=== PATIENT | female | born 1935 | race Caucasian/White ===

== ENCOUNTER → 2018-01-06 | Outpatient (CLI) | payer OTHER ==
[~2018-01-06] MED LIST: ALEN70TA5 PO; ASPIRIN PO; ATOR40TA78 PO; FLUC150T2 PO; ISOSORB PO; MELO15TA24 PO; METO50TA82 PO; PRILOSEC PO; PROBIOTIC PO; SOLI5TAB2 PO; TRANDOLAPRIL PO
== END | disposition home or self-care (01) ==
LOC: WOUND 07:52
PROVIDERS: ATTEND Internal Medicine
DX: L89.42 Pressure ulcer of contiguous site of back, buttock and hip, stage 2 (principal); L98.412 Non-pressure chronic ulcer of buttock with fat layer exposed; I10 Essential (primary) hypertension; I25.10 Atherosclerotic heart disease of native coronary artery without angina pectoris; K21.9 Gastro-esophageal reflux disease without esophagitis; J44.9 Chronic obstructive pulmonary disease, unspecified; M19.90 Unspecified osteoarthritis, unspecified site; E78.5 Hyperlipidemia, unspecified; Z85.51 Personal history of malignant neoplasm of bladder; Z87.891 Personal history of nicotine dependence; Z79.82 Long term (current) use of aspirin
CPT/HCPCS: 97597; G0463; WOU0463

== ENCOUNTER → 2018-01-13 | Outpatient (CLI) | payer OTHER | END | disposition home or self-care (01) | LOC: WOUND 08:24 | PROVIDERS: ATTEND Internal Medicine | DX: L89.42 Pressure ulcer of contiguous site of back, buttock and hip, stage 2 (principal); L98.412 Non-pressure chronic ulcer of buttock with fat layer exposed; I25.10 Atherosclerotic heart disease of native coronary artery without angina pectoris; J44.9 Chronic obstructive pulmonary disease, unspecified; I10 Essential (primary) hypertension; K21.9 Gastro-esophageal reflux disease without esophagitis; E78.5 Hyperlipidemia, unspecified; M19.90 Unspecified osteoarthritis, unspecified site; Z85.51 Personal history of malignant neoplasm of bladder; Z87.891 Personal history of nicotine dependence | CPT/HCPCS: 97597 ==

== ENCOUNTER → 2018-01-20 | Outpatient (CLI) | payer OTHER | END | disposition home or self-care (01) | LOC: WOUND 08:28 | PROVIDERS: ATTEND Internal Medicine | DX: L89.42 Pressure ulcer of contiguous site of back, buttock and hip, stage 2 (principal); L98.412 Non-pressure chronic ulcer of buttock with fat layer exposed; I25.10 Atherosclerotic heart disease of native coronary artery without angina pectoris; J44.9 Chronic obstructive pulmonary disease, unspecified; I10 Essential (primary) hypertension; K21.9 Gastro-esophageal reflux disease without esophagitis; E78.5 Hyperlipidemia, unspecified; M19.90 Unspecified osteoarthritis, unspecified site; Z87.891 Personal history of nicotine dependence; Z85.51 Personal history of malignant neoplasm of bladder; Z79.82 Long term (current) use of aspirin | CPT/HCPCS: 97597; 97598 ==

== ENCOUNTER → 2018-01-27 | Outpatient (CLI) | payer OTHER | END | disposition home or self-care (01) | LOC: WOUND 08:15 | PROVIDERS: ATTEND Internal Medicine | DX: L98.412 Non-pressure chronic ulcer of buttock with fat layer exposed (principal); K21.9 Gastro-esophageal reflux disease without esophagitis; I25.10 Atherosclerotic heart disease of native coronary artery without angina pectoris; M19.90 Unspecified osteoarthritis, unspecified site; J44.9 Chronic obstructive pulmonary disease, unspecified; I10 Essential (primary) hypertension; E78.5 Hyperlipidemia, unspecified; Z85.51 Personal history of malignant neoplasm of bladder; Z87.891 Personal history of nicotine dependence; Z79.82 Long term (current) use of aspirin | CPT/HCPCS: 99214 ==

== ENCOUNTER → 2018-02-03 | Outpatient (CLI) | payer OTHER | END | disposition home or self-care (01) | LOC: WOUND 08:32 | PROVIDERS: ATTEND Internal Medicine | DX: L98.412 Non-pressure chronic ulcer of buttock with fat layer exposed (principal); K21.9 Gastro-esophageal reflux disease without esophagitis; I25.10 Atherosclerotic heart disease of native coronary artery without angina pectoris; M19.90 Unspecified osteoarthritis, unspecified site; J44.9 Chronic obstructive pulmonary disease, unspecified; I10 Essential (primary) hypertension; E78.5 Hyperlipidemia, unspecified; Z85.51 Personal history of malignant neoplasm of bladder; Z87.891 Personal history of nicotine dependence; Z79.82 Long term (current) use of aspirin | CPT/HCPCS: 97597; 97598 ==

== ENCOUNTER → 2018-02-17 | Outpatient (CLI) | payer OTHER | END | disposition home or self-care (01) | LOC: WOUND 08:35 | PROVIDERS: ATTEND Internal Medicine | DX: L98.412 Non-pressure chronic ulcer of buttock with fat layer exposed (principal); K21.9 Gastro-esophageal reflux disease without esophagitis; I25.10 Atherosclerotic heart disease of native coronary artery without angina pectoris; M19.90 Unspecified osteoarthritis, unspecified site; J44.9 Chronic obstructive pulmonary disease, unspecified; I10 Essential (primary) hypertension; E78.5 Hyperlipidemia, unspecified; Z85.51 Personal history of malignant neoplasm of bladder; Z87.891 Personal history of nicotine dependence; Z79.82 Long term (current) use of aspirin | CPT/HCPCS: 97597; 97598 ==

== ENCOUNTER → 2018-02-24 | Outpatient (CLI) | payer OTHER | END | disposition home or self-care (01) | LOC: WOUND 08:48 | PROVIDERS: ATTEND Internal Medicine | DX: L98.412 Non-pressure chronic ulcer of buttock with fat layer exposed (principal); K21.9 Gastro-esophageal reflux disease without esophagitis; I25.10 Atherosclerotic heart disease of native coronary artery without angina pectoris; M19.90 Unspecified osteoarthritis, unspecified site; J44.9 Chronic obstructive pulmonary disease, unspecified; I10 Essential (primary) hypertension; E78.5 Hyperlipidemia, unspecified; L90.0 Lichen sclerosus et atrophicus; Z85.51 Personal history of malignant neoplasm of bladder; Z87.891 Personal history of nicotine dependence; Z79.82 Long term (current) use of aspirin | CPT/HCPCS: 97597; 97598 ==

== ENCOUNTER → 2018-03-03 | Outpatient (CLI) | payer OTHER | END | disposition home or self-care (01) | LOC: WOUND 08:46 | PROVIDERS: ATTEND Internal Medicine | DX: L98.412 Non-pressure chronic ulcer of buttock with fat layer exposed (principal); K21.9 Gastro-esophageal reflux disease without esophagitis; E78.4 Other hyperlipidemia; I10 Essential (primary) hypertension; I25.10 Atherosclerotic heart disease of native coronary artery without angina pectoris; J44.9 Chronic obstructive pulmonary disease, unspecified; M19.90 Unspecified osteoarthritis, unspecified site; L90.0 Lichen sclerosus et atrophicus; Z79.82 Long term (current) use of aspirin; Z85.51 Personal history of malignant neoplasm of bladder; Z87.891 Personal history of nicotine dependence | CPT/HCPCS: 97597; 97598 ==

== ENCOUNTER → 2018-03-19 | Outpatient (CLI) | payer OTHER | END | disposition home or self-care (01) | LOC: WOUND 07:46 | PROVIDERS: ATTEND Internal Medicine | DX: L98.412 Non-pressure chronic ulcer of buttock with fat layer exposed (principal); K21.9 Gastro-esophageal reflux disease without esophagitis; I25.10 Atherosclerotic heart disease of native coronary artery without angina pectoris; M19.90 Unspecified osteoarthritis, unspecified site; J44.9 Chronic obstructive pulmonary disease, unspecified; I10 Essential (primary) hypertension; E78.4 Other hyperlipidemia; Z85.51 Personal history of malignant neoplasm of bladder; Z87.891 Personal history of nicotine dependence; Z79.82 Long term (current) use of aspirin | CPT/HCPCS: 97597; 97598 ==

== ENCOUNTER → 2018-04-02 | Outpatient (CLI) | payer OTHER | END | disposition home or self-care (01) | LOC: WOUND 09:53 | PROVIDERS: ATTEND Internal Medicine | DX: L98.412 Non-pressure chronic ulcer of buttock with fat layer exposed (principal); L90.0 Lichen sclerosus et atrophicus; I10 Essential (primary) hypertension; E78.5 Hyperlipidemia, unspecified; K21.9 Gastro-esophageal reflux disease without esophagitis; J44.9 Chronic obstructive pulmonary disease, unspecified; M19.90 Unspecified osteoarthritis, unspecified site; I25.10 Atherosclerotic heart disease of native coronary artery without angina pectoris; Z85.51 Personal history of malignant neoplasm of bladder; Z87.891 Personal history of nicotine dependence | CPT/HCPCS: 99214 ==

== ENCOUNTER → 2018-04-14 | Outpatient (CLI) | payer OTHER | END | disposition home or self-care (01) | LOC: WOUND 09:26 | PROVIDERS: ATTEND Internal Medicine | DX: L98.412 Non-pressure chronic ulcer of buttock with fat layer exposed (principal); I10 Essential (primary) hypertension; J44.9 Chronic obstructive pulmonary disease, unspecified; K21.9 Gastro-esophageal reflux disease without esophagitis; E78.49 Other hyperlipidemia; M19.90 Unspecified osteoarthritis, unspecified site; I25.10 Atherosclerotic heart disease of native coronary artery without angina pectoris; Z85.51 Personal history of malignant neoplasm of bladder; Z87.891 Personal history of nicotine dependence | CPT/HCPCS: 97597 ==

== ENCOUNTER → 2018-04-28 | Outpatient (CLI) | payer OTHER | END | disposition home or self-care (01) | LOC: WOUND 09:18 | PROVIDERS: ATTEND Internal Medicine | DX: L98.412 Non-pressure chronic ulcer of buttock with fat layer exposed (principal); I10 Essential (primary) hypertension; J44.9 Chronic obstructive pulmonary disease, unspecified; K21.9 Gastro-esophageal reflux disease without esophagitis; E78.49 Other hyperlipidemia; M19.90 Unspecified osteoarthritis, unspecified site; I25.10 Atherosclerotic heart disease of native coronary artery without angina pectoris; L90.0 Lichen sclerosus et atrophicus; Z85.51 Personal history of malignant neoplasm of bladder; Z87.891 Personal history of nicotine dependence; Z79.82 Long term (current) use of aspirin | CPT/HCPCS: 97597 ==

== ENCOUNTER 2018-05-19 17:42 | Inpatient (IN) | payer OTHER ==
[~2018-05-19] VITALS: Ht 167.6 cm; Wt 89.2 kg
[2018-05-19] MEDS ORDERED: HYDR25TA11 PO (18:22)
[2018-05-19] MEDS ORDERED: TOLT2CAP22 PO (18:22)
[2018-05-19] MEDS ORDERED: Oxygen (18:22)
[2018-05-19] MEDS ORDERED: Cetirizine PO (18:22)
[2018-05-19] MEDS ORDERED: PANT40TA5 PO (18:22)
[2018-05-19] MEDS ORDERED: LISI5TAB7 PO (18:22)
[2018-05-19] MEDS ORDERED: FERR325T18 PO (18:22)
[2018-05-19] MEDS ORDERED: MIRA50TA PO (18:36)
[2018-05-19 19:04] LABS: BASOPHILS # (AUTO) 0.04 x10^3/uL (0-0.1); BASOPHILS % (AUTO) 0 % (0-1); EOSINOPHILS # (AUTO) 0.15 x10^3/uL (0-0.4); EOSINOPHILS % (AUTO) 1 % (1-7); LYMPHOCYTES # (AUTO) 1.87 x10^3/uL (1-3.4); LYMPHOCYTES % (AUTO) 15 % (22-44); MD NO; MEAN CORPUSCULAR HGB CONC 33.5 g/dL (32.4-35.8); MEAN CORPUSCULAR VOLUME 89.6 fL (80-100); MEAN PLATELET VOLUME 9.1 fL (7.4-10.4); MONOCYTES # (AUTO) 0.72 x10^3/uL (0.2-0.8); MONOCYTES % (AUTO) 6 % (2-9); NEUTROPHILS # (AUTO) 9.39 x10^3/uL (1.8-6.8); NEUTROPHILS % (AUTO) 77 % (42-75); PLATELET COUNT 274 x10^3/uL (130-400); RED BLOOD COUNT 4.47 x10^6/uL (3.82-5.3); RED CELL DISTRIBUTION WIDTH 20.2 % (9.6-15.2)
[2018-05-19 19:26] LABS: ALANINE AMINOTRANSFERASE 13 U/L (12-78); ALBUMIN 3.4 g/dL (3.4-5.0); ANION GAP 12 mmol/L (5-15); CALCIUM 9.1 mg/dL (8.5-10.1); CHLORIDE 104 mmol/L (98-107)
[2018-05-19 19:30] LABS: ALKALINE PHOSPHATASE 102 U/L (45-117); BILIRUBIN,TOTAL 0.3 mg/dL (0.2-1.0); TOTAL PROTEIN 7.5 g/dL (6.4-8.2); TROPONIN I < 0.015 ng/mL (0.000-0.045)
[2018-05-19] MEDS ORDERED: SODIUM CHLORIDE 0.9% 1,000 ML IV SCH (22:40)
[2018-05-19 23:00] VITALS: BP 111/80
[2018-05-19] MEDS ORDERED: morphine SULFATE 10 MG/ML, 1ML IVPush PRN (23:00)
[2018-05-19] MEDS ORDERED: DOCUSATE 100 MG CAPSULE PO PRN (23:00)
[2018-05-19] MEDS ORDERED: ACETAMINOPHEN 325 MG TABLET PO PRN (23:00)
[2018-05-19] MEDS ORDERED: ENOXAPARIN 40 MG/0.4 ML SQ SCH (23:00)
[2018-05-19] MEDS ORDERED: ONDANSETRON 2MG/ML, 2ML IVPush PRN (23:00)
[2018-05-19] MEDS ORDERED: NITROGLYCERIN 0.4 MG BOTTLE (25 TABS) SL PRN (23:00)
[2018-05-19] MEDS ORDERED: NITROGLYCERIN 0.4 MG/SPRAY SL PRN (23:00)
[2018-05-19] MEDS ORDERED: HYDROcodone/APAP 5/325 TABLET PO PRN (23:00)
[2018-05-19] MEDS ORDERED: POLYETHYLENE GLYCOL 17 GM PACKET PO PRN (23:00)
[2018-05-19] MEDS: ALENDRONATE MC SCH (23:30)
[2018-05-19] MEDS: TRANDOLAPRIL MC SCH (23:30)
[2018-05-20] MEDS: FAMOTIDINE 20 MG TABLET PO SCH ×2 (00:04→08:08)
[2018-05-20 00:45] LABS: CULTURE INDICATED? YES; MICROSCOPIC INDICATED
[2018-05-20 01:28] VITALS: BP 103/69
[2018-05-20] MEDS: CEFTRIAXONE PMX 1GM/50ML 50 ML IV SCH (03:11)
[2018-05-20 05:42] LABS: ANION GAP 11 mmol/L (5-15); CALCIUM 8.4 mg/dL (8.5-10.1); CHLORIDE 106 mmol/L (98-107); TRIGLYCERIDES 217 mg/dL (50-200); VLDL CHOLESTEROL 43 mg/dL (0-25)
[2018-05-20 05:46] LABS: CREATININE 1.73 mg/dL (0.55-1.02); HDL CHOLESTEROL (DIRECT) 37 mg/dL (40-60); TROPONIN I < 0.015 ng/mL (0.000-0.045)
[2018-05-20 05:51] LABS: CHOL/HDL RATIO 2.9; CHOLESTEROL, TOTAL 109 mg/dL (140-239); HDL CHOL % 34 % (28-40); LDL CHOLESTEROL,CALCULATED 29 mg/dL (54-169); LDL/HDL RATIO 0.8 (0.5-3.0)
[2018-05-20 06:50] VITALS: BP 105/69
[2018-05-20] MEDS: TRANDOLAPRIL MC SCH ×3 (07:30→16:17)
[2018-05-20] MEDS: ALENDRONATE MC SCH ×3 (07:30→16:17)
[2018-05-20] MEDS: SENNA/DOCUSATE TABLET PO SCH (08:08)
[2018-05-20] MEDS: ASPIRIN 81 MG TABLET CHEW PO SCH (08:08)
[2018-05-20] MEDS: FERROUS SULFATE 325 MG TABLET PO SCH ×3 (08:08→17:00)
[2018-05-20] MEDS: ISOSORBIDE MONONITRATE ER 30 MG TABLET PO SCH (08:09)
[2018-05-20] MEDS: PANTOPROZOLE 40MG TABLET PO SCH (08:09)
[2018-05-20] MEDS: TOLTERODINE LA 2MG CAP.ER.24H PO SCH (08:09)
[2018-05-20] MEDS: MELOXICAM 15 MG TABLET PO SCH (08:10)
[2018-05-20] MEDS: TEMPLATE NON-FORMULARY MED. (Mirabegron** (Myrbetriq**) 50 MG) HOMEMEDPO SCH (08:10)
[2018-05-20] MEDS: [UNRECOGNIZED DRUG - OTHER] PO SCH (08:10)
[2018-05-20] MEDS: ALENDRONATE SODIUM 70 MG PO SCH (08:10)
[2018-05-20] MEDS ORDERED: REGADENOSON 0.4 MG/5 ML SYRINGE ONE (11:25)
[2018-05-20] MEDS: METOPROLOL TARTRATE 50 MG TABLET PO SCH (13:54)
[2018-05-20 14:24] VITALS: BP 97/61
[2018-05-20] MEDS ORDERED: FAMOTIDINE 20 MG TABLET PO SCH (21:00)
[2018-05-20] MEDS ORDERED: ATORVASTATIN 40 MG TABLET PO SCH (21:00)
[2018-05-20] MEDS ORDERED: CETIRIZINE 10 MG TABLET PO SCH (21:00)
[2018-05-20 21:52] VITALS: BP 112/73
[2018-05-20] MEDS ORDERED: ENOXAPARIN 30 MG/0.3 ML SQ SCH (23:00)
[2018-05-21] MEDS: ALENDRONATE MC SCH ×2 (00:11→08:07)
[2018-05-21] MEDS: TRANDOLAPRIL MC SCH ×2 (00:12→08:08)
[2018-05-21 02:38] VITALS: BP 110/70
[2018-05-21] MEDS: CEFTRIAXONE PMX 1GM/50ML 50 ML IV SCH (02:41)
[2018-05-21 06:44] LABS: BASOPHILS # (AUTO) 0.05 x10^3/uL (0-0.1); BASOPHILS % (AUTO) 1 % (0-1); EOSINOPHILS # (AUTO) 0.27 x10^3/uL (0-0.4); EOSINOPHILS % (AUTO) 3 % (1-7); LYMPHOCYTES # (AUTO) 1.96 x10^3/uL (1-3.4); LYMPHOCYTES % (AUTO) 24 % (22-44); MD NO; MEAN CORPUSCULAR HEMOGLOBIN 30.3 pg (27.0-34.8); MEAN CORPUSCULAR HGB CONC 33.8 g/dL (32.4-35.8); MEAN CORPUSCULAR VOLUME 89.7 fL (80-100); MONOCYTES # (AUTO) 0.56 x10^3/uL (0.2-0.8); MONOCYTES % (AUTO) 7 % (2-9); NEUTROPHILS # (AUTO) 5.31 x10^3/uL (1.8-6.8); NEUTROPHILS % (AUTO) 65 % (42-75); PLATELET COUNT 216 x10^3/uL (130-400); RED BLOOD COUNT 3.33 x10^6/uL (3.82-5.3); RED CELL DISTRIBUTION WIDTH 19.9 % (9.6-15.2)
[2018-05-21 06:55] LABS: ANION GAP 10 mmol/L (5-15); CALCIUM 7.9 mg/dL (8.5-10.1); CHLORIDE 107 mmol/L (98-107); CREATININE 1.82 mg/dL (0.55-1.02)
[2018-05-21 06:57] VITALS: BP 114/75
[2018-05-21] MEDS: [UNRECOGNIZED DRUG - OTHER] PO SCH (07:31)
[2018-05-21] MEDS: TEMPLATE NON-FORMULARY MED. (Mirabegron** (Myrbetriq**) 50 MG) HOMEMEDPO SCH (07:31)
[2018-05-21] MEDS: ALENDRONATE SODIUM 70 MG PO SCH (07:31)
[2018-05-21] MEDS: ASPIRIN 81 MG TABLET CHEW PO SCH (08:09)
[2018-05-21] MEDS: SENNA/DOCUSATE TABLET PO SCH (08:09)
[2018-05-21] MEDS: MELOXICAM 15 MG TABLET PO SCH (08:09)
[2018-05-21] MEDS: FERROUS SULFATE 325 MG TABLET PO SCH (08:09)
[2018-05-21] MEDS: METOPROLOL TARTRATE 50 MG TABLET PO SCH (08:10)
[2018-05-21] MEDS: TOLTERODINE LA 2MG CAP.ER.24H PO SCH (08:10)
[2018-05-21] MEDS: PANTOPROZOLE 40MG TABLET PO SCH (08:10)
[2018-05-21] MEDS: ISOSORBIDE MONONITRATE ER 30 MG TABLET PO SCH (08:10)
[2018-05-21] MEDS ORDERED: CEFU500T50 PO ×3 (09:16→15:01)
== END 2018-05-21 11:40 | disposition home or self-care (01) | DRG 689 ==
LOC: ED 21:40 → EDIP 21:57 → SUATTDRO 22:05 → 5SO 22:57 → DCLOUNGE 05-21 11:26
PROVIDERS: ADMIT Family Medicine; ATTEND Family Medicine
DX: N39.0 Urinary tract infection, site not specified (principal); N17.0 Acute kidney failure with tubular necrosis; I25.10 Atherosclerotic heart disease of native coronary artery without angina pectoris; E11.65 Type 2 diabetes mellitus with hyperglycemia; E86.0 Dehydration; I71.4 Abdominal aortic aneurysm, without rupture; Z66 Do not resuscitate; Z80.0 Family history of malignant neoplasm of digestive organs; Z85.51 Personal history of malignant neoplasm of bladder; Z87.891 Personal history of nicotine dependence; Z79.84 Long term (current) use of oral hypoglycemic drugs
CPT/HCPCS: 36415; 71045; 74176; 78452; 80048; 80053; 80061; 81001; 83690; 83735; 84484; 85025; 87077; 87086; 87186; 93005; 93017; G0378; J0696; J1650; J2405; J2785; A9502; C9898; J7030

== ENCOUNTER 2018-07-03 07:27 | Day surgery (SDC) | payer OTHER ==
[2018-07-02 15:07] LABS: ALANINE AMINOTRANSFERASE 11 U/L (12-78); ALBUMIN 3.6 g/dL (3.4-5.0); ANION GAP 8 mmol/L (5-15); CALCIUM 8.5 mg/dL (8.5-10.1); CHLORIDE 110 mmol/L (98-107); CREATININE 1.27 mg/dL (0.55-1.02)
[2018-07-02 15:09] LABS: ALKALINE PHOSPHATASE 100 U/L (45-117); BILIRUBIN,TOTAL 0.5 mg/dL (0.2-1.0); TOTAL PROTEIN 7.1 g/dL (6.4-8.2)
[~2018-07-03] VITALS: Ht 167.6 cm; Wt 88.4 kg
[~2018-07-03 07:27] MED LIST changes: +ASPI-496 PO; +CEFU500T50 PO; +CETI10TA18 PO; +Cetirizine PO; +FERR325T18 PO; +HYDR25TA11 PO; +LACT1CAP37 PO; +LISI5TAB7 PO; +MIRA50TA PO; +Oxygen; +PANT40TA5 PO; +TOLT2CAP22 PO; +isosorbide PO
[2018-07-03] MEDS ORDERED: ISOS30TA8 PO (08:30)
[2018-07-03] MEDS ORDERED: LACTATED RINGERS 1,000 ML IV SCH (08:31)
[2018-07-03 08:32] VITALS: BP 155/75
[2018-07-03] MEDS ORDERED: PROPOFOL 10 MG/ML, 20ML ONE (10:05)
[2018-07-03] MEDS ORDERED: ONDANSETRON ODT 8 MG PO PRN (10:30)
[2018-07-03] MEDS ORDERED: OXYcodone 5 MG/5 ML ORAL.SOL UDC PO PRN (10:30)
[2018-07-03] MEDS ORDERED: FENTANYL PF 100 MCG/2ML IV PRN (10:30)
[2018-07-03] MEDS ORDERED: ACETAMINOPHEN 325 MG TABLET PO PRN (10:30)
[2018-07-03] MEDS ORDERED: ONDANSETRON 2MG/ML, 2ML IV PRN (10:30)
== END 2018-07-03 12:10 | disposition home or self-care (01) ==
LOC: OUT 07:27
PROVIDERS: ATTEND Internal Medicine Gastroenterology
DX: K29.50 Unspecified chronic gastritis without bleeding (principal); K22.10 Ulcer of esophagus without bleeding; K21.0 Gastro-esophageal reflux disease with esophagitis; K44.9 Diaphragmatic hernia without obstruction or gangrene; K57.30 Diverticulosis of large intestine without perforation or abscess without bleeding; J44.9 Chronic obstructive pulmonary disease, unspecified; I25.10 Atherosclerotic heart disease of native coronary artery without angina pectoris; I10 Essential (primary) hypertension; Z98.890 Other specified postprocedural states; Z79.82 Long term (current) use of aspirin; Z79.899 Other long term (current) drug therapy; Z87.891 Personal history of nicotine dependence
CPT/HCPCS: 36415; 43239; 80053; 88305; 93005; J2704; J7120

== ENCOUNTER 2018-07-14 19:17 | Inpatient (IN) | payer OTHER ==
[~2018-07-14] VITALS: Ht 167.6 cm; Wt 88.0 kg
[~2018-07-14 19:17] MED LIST changes: +ISOS30TA8 PO
--- NOTE | 2018-07-14 19:38 | NUR ---
REPORT TO PABLO BRYANT
[2018-07-14] MEDS ORDERED: SODIUM CHLORIDE FLUSH 10ML SYR IVF ONE (20:00)
[2018-07-14 20:20] LABS: BASOPHILS # (AUTO) 0.04 x10^3/uL (0-0.1); BASOPHILS % (AUTO) 1 % (0-1); EOSINOPHILS # (AUTO) 0.12 x10^3/uL (0-0.4); EOSINOPHILS % (AUTO) 2 % (1-7); LYMPHOCYTES # (AUTO) 1.64 x10^3/uL (1-3.4); LYMPHOCYTES % (AUTO) 20 % (22-44); MD NO; MEAN CORPUSCULAR HEMOGLOBIN 31.3 pg (27.0-34.8); MEAN CORPUSCULAR HGB CONC 33.2 g/dL (32.4-35.8); MEAN CORPUSCULAR VOLUME 94.4 fL (80-100); MEAN PLATELET VOLUME 9.2 fL (7.4-10.4); MONOCYTES # (AUTO) 0.62 x10^3/uL (0.2-0.8); MONOCYTES % (AUTO) 8 % (2-9); NEUTROPHILS # (AUTO) 5.68 x10^3/uL (1.8-6.8); NEUTROPHILS % (AUTO) 70 % (42-75); PLATELET COUNT 220 x10^3/uL (130-400); RED BLOOD COUNT 3.94 x10^6/uL (3.82-5.3); RED CELL DISTRIBUTION WIDTH 14.6 % (9.6-15.2)
[2018-07-14 20:28] LABS: ALANINE AMINOTRANSFERASE 11 U/L (12-78); ALBUMIN 3.4 g/dL (3.4-5.0); ANION GAP 8 mmol/L (5-15); CALCIUM 8.3 mg/dL (8.5-10.1); CHLORIDE 109 mmol/L (98-107); CREATININE 1.09 mg/dL (0.55-1.02)
[2018-07-14 20:32] LABS: ALKALINE PHOSPHATASE 88 U/L (45-117); BILIRUBIN,TOTAL 0.4 mg/dL (0.2-1.0); TOTAL PROTEIN 6.6 g/dL (6.4-8.2); TROPONIN I < 0.015 ng/mL (0.000-0.045)
--- NOTE | 2018-07-14 21:49 | NUR ---
PT RESTING IN BED AT THIS TIME. PT PLACED ON 2 LPM 02 VIA NC THAT SHE WEARS WHEN SHE SLEEPS. RESPS EVEN AND UNLABORED AND BLANKET PROVIDED.
--- NOTE | 2018-07-14 22:17 | NUR ---
ADMITTING PROVIDER IN ROOM.
[2018-07-14 22:29] LABS: CULTURE INDICATED? YES; MICROSCOPIC INDICATED
--- NOTE | 2018-07-14 22:33 | NUR ---
PT RESTING COMFORTABLY. UA SENT TO LAB. PT EXPRESSES NO WANTS OR NEEDS AT THIS TIME.
[2018-07-14] MEDS ORDERED: DOCUSATE 100 MG CAPSULE PO PRN (23:30)
[2018-07-14] MEDS ORDERED: ONDANSETRON 4 MG TABLET PO PRN (23:30)
[2018-07-15] VITALS (8 sets, daily range): BP systolic 94–189; BP diastolic 53–85
[2018-07-15] MEDS ORDERED: MELOXICAM 15 MG TABLET PO PRN (01:30)
[2018-07-15] MEDS ORDERED: SUCR1ORA5 PO (02:24)
[2018-07-15] MEDS ORDERED: OMEP40CA6 PO (02:24)
[2018-07-15] MEDS ORDERED: ASPIRIN 81 MG TABLET EC PO SCH (06:00)
[2018-07-15 06:56] LABS: CHOL/HDL RATIO 2.8; LDL/HDL RATIO 1.2 (0.5-3.0)
[2018-07-15] MEDS: FERROUS SULFATE 325 MG TABLET PO SCH ×3 (08:19→17:00)
[2018-07-15] MEDS ORDERED: ISOSORBIDE MONONITRATE ER 30 MG TABLET PO SCH (09:00)
[2018-07-15] MEDS ORDERED: ATORVASTATIN 40 MG TABLET PO SCH (09:00)
[2018-07-15] MEDS ORDERED: LISINOPRIL 20 MG TABLET PO SCH (09:00)
[2018-07-15] MEDS ORDERED: METOPROLOL TARTRATE 50 MG TABLET PO SCH (09:00)
[2018-07-15] MEDS ORDERED: ASPIRIN 81 MG TABLET CHEW PO/NG SCH (09:00)
[2018-07-15] MEDS ORDERED: hydrALAzine 20 MG/ML, 1ML IV PRN (11:00)
[2018-07-15] MEDS ORDERED: hydrALAzine 20 MG/ML, 1ML IV ONE (11:00)
[2018-07-15] MEDS ORDERED: SODIUM CHLORIDE 0.45% 1,000 ML IV SCH (13:00)
== END 2018-07-15 17:53 | disposition home or self-care (01) | DRG 312 ==
LOC: ED 22:21 → EDIP 22:45 → 4EST 07-15 01:08
PROVIDERS: ADMIT Family Medicine; ATTEND Hospitalist
DX: R55 Syncope and collapse (principal); E11.9 Type 2 diabetes mellitus without complications; I25.10 Atherosclerotic heart disease of native coronary artery without angina pectoris; G89.29 Other chronic pain; M54.9 Dorsalgia, unspecified; I11.9 Hypertensive heart disease without heart failure; Z80.0 Family history of malignant neoplasm of digestive organs; Z85.51 Personal history of malignant neoplasm of bladder; Z87.891 Personal history of nicotine dependence; Z90.89 Acquired absence of other organs; Z87.440 Personal history of urinary (tract) infections
CPT/HCPCS: 36415; 70450; 80053; 80061; 81001; 83605; 84484; 85025; 87086; 93005; 93880; 99285; Q0162; J0360

== ENCOUNTER → 2018-10-07 | Outpatient (CLI) | payer MEDICARE ==
[~2018-10-07] MED LIST changes: -ALEN70TA5 PO; +ALEN70TA6 PO; +CLOP75TA PO; +CYCL-259 PO; +GABA100C PO; +OMEP40CA6 PO; +SUCR1ORA5 PO
== END | disposition home or self-care (01) ==
LOC: STAR 09:51
PROVIDERS: ATTEND Thoracic Surgery (Cardiothoracic Vascular Surgery)
DX: Z01.818 Encounter for other preprocedural examination (principal); K44.9 Diaphragmatic hernia without obstruction or gangrene
CPT/HCPCS: 93005

== ENCOUNTER 2018-10-22 07:55 | Observation (INO) | payer MEDICARE ==
[~2018-10-22] VITALS: Ht 167.6 cm; Wt 90.2 kg
[~2018-10-22 07:55] MED LIST changes: +BUPIVACAINE/PF-EPI 0.5% 1:200K ONE
[2018-10-22 08:55] VITALS: BP 172/87
[2018-10-22] MEDS ORDERED: LACTATED RINGERS 1,000 ML IV SCH (08:58)
[2018-10-22] MEDS ORDERED: OMEPRAZOLE PO (09:00)
[2018-10-22] MEDS ORDERED: FENTANYL PF 250 MCG/5ML ONE (09:06)
[2018-10-22] MEDS ORDERED: PROPOFOL 10 MG/ML, 20ML ONE (10:08)
[2018-10-22] MEDS ORDERED: DEXAMETHASONE 4 MG/ML, 1ML ONE (10:08)
[2018-10-22] MEDS ORDERED: ONDANSETRON 2MG/ML, 2ML ONE (10:08)
[2018-10-22] MEDS ORDERED: ROCURONIUM 10MG/ML,5ML ONE (10:08)
[2018-10-22] MEDS ORDERED: CEFAZOLIN 1,000 MG ONE (10:08)
[2018-10-22] MEDS ORDERED: GLYCOPYRROLATE 0.2MG/1ML, 5ML ONE (10:08)
[2018-10-22] MEDS ORDERED: SUCCINYLCHOLINE 20 MG/ML, 10ML ONE ×2 (10:08→13:04)
[2018-10-22] MEDS ORDERED: NEOSTIGMINE 1 MG/ML, 10ML ONE (10:08)
[2018-10-22] MEDS ORDERED: ONDANSETRON 2MG/ML, 2ML IV PRN (10:30)
[2018-10-22] MEDS ORDERED: OXYcodone 5 MG/5 ML ORAL.SOL UDC PO PRN (10:30)
[2018-10-22] MEDS ORDERED: HYDROmorphone 2 MG/ML, 1ML IVPush PRN (10:30)
[2018-10-22] MEDS ORDERED: ONDANSETRON ODT 8 MG PO PRN (10:30)
[2018-10-22] MEDS ORDERED: ACETAMINOPHEN 325 MG TABLET PO PRN ×2 (10:30→11:30)
[2018-10-22] MEDS ORDERED: hydrALAzine 20 MG/ML, 1ML IV PRN ×2 (10:30→11:30)
[2018-10-22] MEDS ORDERED: LABETALOL 5MG/ML, 20ML IV PRN (10:30)
[2018-10-22] MEDS ORDERED: hydrALAzine 20 MG/ML, 1ML ONE (10:32)
[2018-10-22] MEDS ORDERED: PROMETHAZINE 12.5 MG SUPP PR PRN (11:30)
[2018-10-22] MEDS ORDERED: ENALAPRILAT 1.25 MG/ML, 2ML IV PRN (11:30)
[2018-10-22] MEDS ORDERED: ACETAMINOPHEN 650 MG SUPP PR PRN (11:30)
[2018-10-22] MEDS ORDERED: LORazepam 2 MG/ML, 1ML IV PRN (11:30)
[2018-10-22] MEDS ORDERED: ONDANSETRON 2MG/ML, 2ML IVPush PRN (11:30)
[2018-10-22] MEDS ORDERED: PROMETHAZINE 25 MG/ML, 1ML IM PRN (11:30)
[2018-10-22] MEDS ORDERED: morphine SULFATE 10 MG/ML, 1ML IV PRN (11:30)
[2018-10-22] MEDS ORDERED: ACETAMINOPHEN 650 MG/20.3 ML UDC ONE (11:38)
[2018-10-22] MEDS ORDERED: FENTANYL PF 100 MCG/2ML ONE (11:38)
[2018-10-22] MEDS ORDERED: OXYcodone 5 MG/5 ML ORAL.SOL UDC ONE (11:38)
[2018-10-22] MEDS: FENTANYL PF 100 MCG/2ML IV PRN ×2 (11:43→12:24)
[2018-10-22] MEDS ORDERED: PROMETHAZINE 25 MG/ML, 1ML ONE (11:49)
[2018-10-22] MEDS: PROMETHAZINE 25 MG/ML, 1ML IV PRN ×2 (11:52→12:25)
[2018-10-22] MEDS ORDERED: ROCURONIUM 10 MG/ML,10ML ONE (13:04)
[2018-10-22] MEDS ORDERED: EPHEDRINE 50 MG/ML, 1ML ONE (13:04)
[2018-10-22] MEDS ORDERED: KETOROLAC 30 MG/1 ML ONE (13:04)
[2018-10-22] MEDS: FAMOTIDINE 20 MG/2 ML IV SCH ×2 (15:58→23:30)
[2018-10-22] MEDS: CYCLOBENZAPRINE 10 MG TABLET PO SCH ×2 (15:58→21:00)
[2018-10-22] MEDS: GABAPENTIN 100 MG CAPSULE PO SCH ×2 (15:58→21:00)
[2018-10-22] MEDS: LACTATED RINGERS 1,000 ML IV SCH ×2 (17:00→19:19)
[2018-10-22] MEDS: METOPROLOL TARTRATE 25 MG TABLET PO SCH (17:45)
[2018-10-22] MEDS: HYDROcodone/APAP 7.5-325MG/15ML UDC PO PRN ×2 (17:45→22:30)
[2018-10-22 20:42] VITALS: BP 175/95
[2018-10-23 00:42] VITALS: BP 178/89
[2018-10-23] MEDS: LACTATED RINGERS 1,000 ML IV SCH (03:19)
[2018-10-23 05:07] VITALS: BP 132/74
[2018-10-23] MEDS: METOPROLOL TARTRATE 25 MG TABLET PO SCH (05:17)
[2018-10-23 07:48] VITALS: BP 154/81
[2018-10-23] MEDS ORDERED: LISINOPRIL 20 MG TABLET PO SCH (09:00)
[2018-10-23] MEDS ORDERED: ENOXAPARIN 40 MG/0.4 ML SQ SCH (09:00)
[2018-10-23] MEDS ORDERED: TEMPLATE NON-FORMULARY MED. (Mirabegron** (Myrbetriq**) 50 MG) PO SCH (09:00)
[2018-10-23] MEDS ORDERED: ATORVASTATIN 40 MG TABLET PO SCH (09:00)
[2018-10-23] MEDS: CYCLOBENZAPRINE 10 MG TABLET PO SCH (09:27)
[2018-10-23] MEDS: GABAPENTIN 100 MG CAPSULE PO SCH (09:28)
[2018-10-23] MEDS: FAMOTIDINE 20 MG/2 ML IV SCH (09:29)
[2018-10-23] MEDS ORDERED: HYDR15SO3 PO (09:47)
== END 2018-10-23 11:20 | disposition home or self-care (01) ==
LOC: OUT 07:55 → ORIP 11:19 → 4NOR 12:54 → DCLOUNGE 10-23 11:01
PROVIDERS: ADMIT Thoracic Surgery (Cardiothoracic Vascular Surgery); ATTEND Thoracic Surgery (Cardiothoracic Vascular Surgery)
DX: K44.9 Diaphragmatic hernia without obstruction or gangrene (principal); K22.70 Barrett's esophagus without dysplasia; K21.0 Gastro-esophageal reflux disease with esophagitis; J44.9 Chronic obstructive pulmonary disease, unspecified; E78.00 Pure hypercholesterolemia, unspecified; I10 Essential (primary) hypertension
CPT/HCPCS: 43282; 96372; 96374; 96375; 96376; G0378; J0330; J0360; J0690; J1100; J1650; J2405; J2550; J2704; J2710; J3010; J3490; J7120; Q4116; J1885

== ENCOUNTER 2019-05-07 12:54 | Outpatient (CLI) | payer MEDICARE ==
[~2019-05-07 12:54] MED LIST changes: -BUPIVACAINE/PF-EPI 0.5% 1:200K ONE; +HYDR-826 PO; +HYDR15SO3 PO; -HYDR25TA11 PO; +OMEPRAZOLE PO
== END 2019-05-07 23:59 | disposition home or self-care (01) ==
LOC: CARD 12:54
PROVIDERS: ATTEND Internal Medicine
DX: G47.36 Sleep related hypoventilation in conditions classified elsewhere (principal)
CPT/HCPCS: 94060; 94726; 94729

== ENCOUNTER 2019-05-12 08:41 | Outpatient (CLI) | payer MEDICARE ==
[~2019-05-12 08:41] MED LIST changes: +OMEP40CA42 PO; -OMEP40CA6 PO
== END 2019-05-12 23:59 | disposition home or self-care (01) ==
LOC: WOUND 08:41
PROVIDERS: ATTEND Nurse Practitioner Family
DX: E11.622 Type 2 diabetes mellitus with other skin ulcer (principal); L98.411 Non-pressure chronic ulcer of buttock limited to breakdown of skin; L90.0 Lichen sclerosus et atrophicus; N39.42 Incontinence without sensory awareness; R21 Rash and other nonspecific skin eruption; I11.9 Hypertensive heart disease without heart failure; G89.29 Other chronic pain; E78.5 Hyperlipidemia, unspecified; M06.9 Rheumatoid arthritis, unspecified; K21.9 Gastro-esophageal reflux disease without esophagitis; J44.9 Chronic obstructive pulmonary disease, unspecified; M81.0 Age-related osteoporosis without current pathological fracture; I25.10 Atherosclerotic heart disease of native coronary artery without angina pectoris; E78.00 Pure hypercholesterolemia, unspecified; Z90.89 Acquired absence of other organs; Z87.891 Personal history of nicotine dependence; Z85.51 Personal history of malignant neoplasm of bladder; Z79.84 Long term (current) use of oral hypoglycemic drugs; Z79.82 Long term (current) use of aspirin; Z79.899 Other long term (current) drug therapy
CPT/HCPCS: 97597; 97598

== ENCOUNTER → 2019-09-08 | Outpatient (CLI) | payer MEDICARE ==
[~2019-09-08] MED LIST changes: +REGADENOSON 0.4 MG/5 ML SYRINGE ONE
== END | disposition home or self-care (01) ==
LOC: CVU 06:51
PROVIDERS: ATTEND Registered Nurse
DX: I65.23 Occlusion and stenosis of bilateral carotid arteries (principal); I08.0 Rheumatic disorders of both mitral and aortic valves; R55 Syncope and collapse; R07.9 Chest pain, unspecified; I71.4 Abdominal aortic aneurysm, without rupture
CPT/HCPCS: 78452; 93017; 93306; 93880; A9502; J2785

== ENCOUNTER → 2020-11-24 | Outpatient (CLI) | payer MEDICARE ==
[~2020-11-24] MED LIST changes: -ALEN70TA6 PO; +ALEN70TA77 PO; +AMINOPHYLLINE 25 MG/ML, 10ML ONE; -CYCL-259 PO; +CYCL10TA2 PO; -PANT40TA5 PO; +PANT40TA6 PO
== END | disposition home or self-care (01) ==
LOC: CFH 07:40
PROVIDERS: ATTEND Nurse Practitioner Family
DX: I25.89 Other forms of chronic ischemic heart disease (principal); I25.10 Atherosclerotic heart disease of native coronary artery without angina pectoris; I10 Essential (primary) hypertension
CPT/HCPCS: 78452; 93017; A9502; J0280; J2785